=== PATIENT | female | born 1945 | race Caucasian/White ===

== ENCOUNTER 2020-11-19 13:32 | Inpatient (IN) | payer MEDICARE, OTHER ==
[~2020-11-19] VITALS: Ht 167.6 cm; Wt 65.9 kg
[~2020-11-19 13:32] MED LIST: DEC4T PO; LISI10TA27 PO; METF-436 PO; RIVA10TA PO
[2020-11-19 15:06] LABS: ABG BASE EXCESS -17.5 mmol/L (-2.0-2.0); ABG HCO3 11.6 mmol/L (22.0-26.0); ABG PCO2 (T) 39.4 mmHg (32.0-45.0); ABG PO2 (T) 148.6 mmHg (75.0-100.0); ALLEN'S TEST POSITIVE; FCOHb 0.3 % (0.0-3.9); FLOW 15 L/min; FMetHb 0.1 % (0.0-1.5); FO2Hb 97.6 % (94-97); PATIENT TEMPERATURE 36.8; TOTAL HEMOGLOBIN 12.5 G/dl (12.0-16.0)
[2020-11-19] MEDS ORDERED: iohexol 350MG/ML 100ml bottle IV ONE (15:27)
[2020-11-19] MEDS: MESSAGE TO NURSING PO NR (15:32)
[2020-11-19] MEDS ORDERED: normal saline 1000ML IV soln IVB ONE ×2 (15:45→17:30)
[2020-11-19] MEDS ORDERED: alteplase 100MG inj. 100 ML IV ONE (16:10)
[2020-11-19 16:11] LABS: BASOPHILS # (AUTO) 0.1 X10'3 (0-0.2); BASOPHILS % (AUTO) 0.4 % (0-1); EOSINOPHILS # (AUTO) 0.1 X10'3 (0-0.9); EOSINOPHILS % (AUTO) 0.2 % (0-6); HEMATOCRIT 39.9 % (35.0-45.0); HEMOGLOBIN 12.3 g/dl (12.0-16.0); LYMPHOCYTES % (AUTO) 28.9 % (21-51); MEAN CORPUSCULAR HGB CONC 30.9 g/dL (33.0-36.5); MEAN CORPUSCULAR VOLUME 93.7 FL (78-98); MEAN PLATELET VOLUME 7.6 FL (7.4-10.4); MONOCYTES # (AUTO) 2.1 X10'3 (0-0.9); MONOCYTES % (AUTO) 6.8 % (2-12); NEUTROPHILS # (AUTO) 19.9 X10'3 (1.8-7.7); NEUTROPHILS % (AUTO) 63.7 % (42-75); PLATELET COUNT 226 X10'3 (140-440); RED BLOOD COUNT 4.26 X10'6 (4.20-5.60)
[2020-11-19 16:14] LABS: WHITE BLOOD COUNT 31.2 X10'3 (4.5-11.0)
[2020-11-19] MEDS ORDERED: ondansetron/PF 4mg/2ml inj IV PRN (16:30)
[2020-11-19] MEDS ORDERED: potassium Cl 40MEQ/1/2NS 520ml 520 ML IV PRN ×2 (16:30)
[2020-11-19] MEDS ORDERED: acetaminophen 325mg tablet PO PRN (16:30)
[2020-11-19] MEDS ORDERED: morphine 4 MG/ML inj SYRINge IV PRN (16:30)
[2020-11-19] MEDS ORDERED: potassium Cl 20 mEq SR tablet PO PRN (16:30)
[2020-11-19] MEDS ORDERED: LIDOcaine 2% 10ml TOPICAL JELLY (Urojet) TP ONE (16:30)
[2020-11-19 16:34] LABS: TOTAL CELLS COUNTED 200
[2020-11-19 16:35] LABS: HYPOCHROMASIA 1+; PLATELET ESTIMATE NORMAL
[2020-11-19 16:36] LABS: BURR CELLS 1+
[2020-11-19] MEDS ORDERED: cefepime 2g/NS 100ml ADVANTAGE 100 ML IV ONE (16:50)
[2020-11-19 17:04] LABS: ALANINE AMINOTRANSFERASE 73 U/L (12-78); ALBUMIN 2.2 G/DL (3.4-5.0); ALBUMIN/GLOBULIN RATIO 0.7 (1.1-1.5); ALKALINE PHOSPHATASE 93 IU/L (46-116); ANION GAP 17 (8-16); ASPARTATE AMINO TRANSFERASE 89 U/L (10-37); BILIRUBIN,TOTAL 1.1 MG/DL (0.1-1.0); BLOOD UREA NITROGEN 9 MG/DL (7-18); BUN/CREATININE RATIO 7.7 (6.6-38.0); CALCIUM 7.9 MG/DL (8.5-10.1); CHLORIDE 106 MMOL/L (99-107); CREATININE 1.17 MG/DL (0.40-0.90); GLUCOSE 232 MG/DL (70-104); SODIUM 137 MMOL/L (135-145); TOTAL PROTEIN 5.5 G/DL (6.4-8.2); TROPONIN I 0.26 NG/ML (0.0-0.05); eGFR 45 ML/MIN
[2020-11-19] MEDS ORDERED: NORepinephrine inj. 8 MG in dextrose 5%-water 242 ML IV SCH (17:30)
[2020-11-19] MEDS ORDERED: NITR100C11 PO (17:30)
--- NOTE | 2020-11-19 17:36 | NUR ---
lab called C02 is 14, leyda duran, dr. garibay informed
[2020-11-19] MEDS ORDERED: LISI10TA27 PO (17:37)
[2020-11-19] MEDS: NORepinephrine 8mg/ 250ml NS 250 ML IV SCH (18:13)
[2020-11-19] MEDS: normal saline 1000ml 1,000 ML IV SCH (18:56)
[2020-11-19] MEDS: docusate sod 100mg capsule PO SCH (20:00)
[2020-11-19] MEDS ORDERED: VANCOMYCIN 1,500MG inj. 1,500 MG in normal saline 500ml IV soln 500 ML IV SCH (20:00)
[2020-11-19 20:46] LABS: CLARITY,URINE SLIGHTLY CLOUDY (Clear); COLOR,URINE YELLOW (Yellow); UA COLLECTION TYPE FOLEY CATH
[2020-11-19 20:47] LABS: GLUCOSE, URINE NEGATIVE (Neg); KETONES,URINE NEGATIVE (Neg); LEUKOCYTE ESTERASE ,URINE NEGATIVE (Neg); NITRITES, URINE NEGATIVE (Neg); OCCULT BLOOD,URINE NEGATIVE (Neg); PROTEIN,URINE 100 mg/dl (Neg); UROBILINOGEN,URINE 0.2 E.U/dL (0.2-1.0)
[2020-11-19 20:54] LABS: BACTERIA,URINE 2+ /HPF (Neg); RBC,URINE NONE SEEN /HPF (0-2); SQUAMOUS EPITHELIAL CELL,UR MODERATE /LPF (FEW); WBC,URINE 0-4 /HPF (0-4)
[2020-11-19] MEDS: famotidine 20mg tablet PO SCH (21:07)
[2020-11-19] MEDS: HYDROcodone/acetaminophen 5mg/325mg tablet PO PRN (21:07)
[2020-11-19 22:21] LABS: PARTIAL THROMBOPLASTIN TIME 63 SECONDS (22-32)
[2020-11-19] MEDS ORDERED: heparin 25,000 UNIT/250ml bag 250 ML IV SCH (23:00)
[2020-11-19] MEDS ORDERED: heparin 10,000 units/1 ML INJ IV PRN (23:00)
[2020-11-20] VITALS (13 sets, daily range): BP systolic 89–115; BP diastolic 51–72
[2020-11-20] MEDS ORDERED: cefepime 2g/NS 100ml ADVANTAGE 100 ML IV SCH
[2020-11-20] MEDS: normal saline 1000ml 1,000 ML IV SCH ×2 (05:50→19:10)
[2020-11-20] MEDS: HYDROcodone/acetaminophen 5mg/325mg tablet PO PRN ×4 (05:55→18:22)
[2020-11-20 06:08] LABS: BASOPHILS % (AUTO) 0.1 % (0-1); EOSINOPHILS % (AUTO) 0 % (0-6); HEMATOCRIT 36.3 % (35.0-45.0); HEMOGLOBIN 11.8 g/dl (12.0-16.0); LYMPHOCYTES # (AUTO) 3.4 X10'3 (1.1-4.8); LYMPHOCYTES % (AUTO) 12.7 % (21-51); MEAN CORPUSCULAR HEMOGLOBIN 29.1 PG (27.0-31.0); MEAN CORPUSCULAR HGB CONC 32.5 g/dL (33.0-36.5); MEAN CORPUSCULAR VOLUME 89.5 FL (78-98); MEAN PLATELET VOLUME 7.7 FL (7.4-10.4); MONOCYTES # (AUTO) 1.2 X10'3 (0-0.9); MONOCYTES % (AUTO) 4.5 % (2-12); NEUTROPHILS # (AUTO) 22.1 X10'3 (1.8-7.7); NEUTROPHILS % (AUTO) 82.7 % (42-75); PLATELET COUNT 198 X10'3 (140-440); RED BLOOD COUNT 4.06 X10'6 (4.20-5.60); RED CELL DISTRIBUTION WIDTH 14.5 % (11.5-14.5)
[2020-11-20 06:21] LABS: WHITE BLOOD COUNT 26.6 X10'3 (4.5-11.0)
[2020-11-20 06:45] LABS: ALBUMIN 2.2 G/DL (3.4-5.0); ALBUMIN/GLOBULIN RATIO 0.7 (1.1-1.5); ALKALINE PHOSPHATASE 104 IU/L (46-116); ANION GAP 14 (8-16); BILIRUBIN,TOTAL 0.6 MG/DL (0.1-1.0); BLOOD UREA NITROGEN 21 MG/DL (7-18); BUN/CREATININE RATIO 13.9 (6.6-38.0); CALCIUM 7.2 MG/DL (8.5-10.1); CHLORIDE 106 MMOL/L (99-107); CREATININE 1.51 MG/DL (0.40-0.90); GLUCOSE 205 MG/DL (70-104); MAGNESIUM 1.9 MG/DL (1.5-2.4); PHOSPHORUS 3.9 MG/DL (2.3-4.5); POTASSIUM 4.2 MMOL/L (3.5-5.1); SODIUM 137 MMOL/L (135-145); TOTAL CARBON DIOXIDE 17.4 MMOL/L (24-32); TOTAL PROTEIN 5.3 G/DL (6.4-8.2); eGFR 34 ML/MIN
[2020-11-20 06:58] LABS: ALANINE AMINOTRANSFERASE 1532 U/L (12-78)
--- NOTE | 2020-11-20 07:12 | NUR ---
NOTIFIED DR. ARIAS PT WITH PTT 120 AND INFORMED HEPARIN CURRENTLY ON HOLD FOR 2 HOUR PER PROTOCOL. RECEIVED VO TO STOP HEPARIN AND START PT ON LOVENOX 80MG SUBCUT BID.
[2020-11-20 07:16] LABS: ASPARTATE AMINO TRANSFERASE 1883 U/L (10-37)
--- NOTE | 2020-11-20 07:51 | NUR ---
REPORT ATTEMPTED, RN CURRENTLY UNABLE TO RECEIVE REPORT, TO CALL BACK IN 15MIN
[2020-11-20] MEDS: docusate sod 100mg capsule PO SCH ×2 (08:00→19:50)
[2020-11-20] MEDS: famotidine 20mg tablet PO SCH ×2 (08:00→19:50)
[2020-11-20 08:08] LABS: PLATELET ESTIMATE NORMAL; TOTAL CELLS COUNTED 100
--- NOTE | 2020-11-20 08:47 | NUR ---
Patient in room ED 6. I have received report from JASON RN and had the opportunity to ask questions and assume patient care.
[2020-11-20] MEDS: MESSAGE TO NURSING PO NR (10:00)
[2020-11-20] MEDS ORDERED: glucagon, human recombinant 1mg kit SUBCUT PRN (11:10)
[2020-11-20] MEDS ORDERED: insulin Lispro (HumaLOG) vial - multi-dose SQ SCH (11:10)
[2020-11-20] MEDS ORDERED: dextrose 50%-water 50ml dispensing syringe IV PRN ×2 (11:10)
[2020-11-20] MEDS ORDERED: MESSAGE TO PHARMACY PO ONE (11:10)
[2020-11-20] MEDS ORDERED: dextrose ORAL solution 15 GM/59 ML bottle PO PRN ×2 (11:10)
[2020-11-20] MEDS: NORepinephrine 8mg/ 250ml NS 250 ML IV SCH (11:11)
[2020-11-20 12:21] LABS: HEMOGLOBIN A1C 7.7 % (4.5-6.2)
--- NOTE | 2020-11-20 17:31 | NUR ---
New orders from Dr. Yan to DC [facility] and DC [facility], pt to transfer to Telemetry
--- NOTE | 2020-11-20 18:00 | NUR ---
Pt in ICu, recieved report from Ariana Allen RN will assume care when pt arrives to floor.
--- NOTE | 2020-11-20 18:08 | NUR ---
right central line dc'd with tip intact, site clear,cleansed,with 2x2 and tegaderm dressing applied,no further bleeding
--- NOTE | 2020-11-20 18:12 | NUR ---
Problems reprioritized. Patient report given, questions answered & plan of care reviewed with Trace DIAZ.
[2020-11-20] MEDS ORDERED: enoxaparin 80mg/0.8ml syringe SUBCUT SCH (20:00)
--- NOTE | 2020-11-20 20:00 | NUR ---
pt arrived to unit care assumed
[2020-11-20] MEDS: insulin glargine (Lantus) pen - multi-dose SQ SCH (21:00)
[2020-11-20] MEDS: morphine 2 MG/ML inj. syringe IV PRN (21:59)
[2020-11-21 02:00] VITALS: BP 94/51
--- NOTE | 2020-11-21 06:42 | NUR ---
Problems reprioritized. Patient report given, questions answered & plan of care reviewed with Larry RN.
[2020-11-21 06:49] LABS: BASOPHILS % (AUTO) 0.4 % (0-1); EOSINOPHILS % (AUTO) 0.3 % (0-6); HEMATOCRIT 31.5 % (35.0-45.0); HEMOGLOBIN 10.6 g/dl (12.0-16.0); LYMPHOCYTES # (AUTO) 2.2 X10'3 (1.1-4.8); LYMPHOCYTES % (AUTO) 21.1 % (21-51); MEAN CORPUSCULAR HEMOGLOBIN 29.3 PG (27.0-31.0); MEAN CORPUSCULAR HGB CONC 33.6 g/dL (33.0-36.5); MEAN CORPUSCULAR VOLUME 87.3 FL (78-98); MEAN PLATELET VOLUME 8.4 FL (7.4-10.4); MONOCYTES # (AUTO) 0.5 X10'3 (0-0.9); MONOCYTES % (AUTO) 4.4 % (2-12); NEUTROPHILS # (AUTO) 7.9 X10'3 (1.8-7.7); NEUTROPHILS % (AUTO) 73.8 % (42-75); PLATELET COUNT 146 X10'3 (140-440); RED CELL DISTRIBUTION WIDTH 14.4 % (11.5-14.5); WHITE BLOOD COUNT 10.7 X10'3 (4.5-11.0)
[2020-11-21 07:02] VITALS: BP 131/71
[2020-11-21 07:28] LABS: ALBUMIN/GLOBULIN RATIO 0.7 (1.1-1.5); ALKALINE PHOSPHATASE 93 IU/L (46-116); ANION GAP 12 (8-16); ASPARTATE AMINO TRANSFERASE 679 U/L (10-37); BILIRUBIN,TOTAL 0.3 MG/DL (0.1-1.0); BLOOD UREA NITROGEN 16 MG/DL (7-18); BUN/CREATININE RATIO 16.7 (6.6-38.0); CALCIUM 7.3 MG/DL (8.5-10.1); CHLORIDE 111 MMOL/L (99-107); CREATININE 0.96 MG/DL (0.40-0.90); GLUCOSE 99 MG/DL (70-104); PHOSPHORUS 2.6 MG/DL (2.3-4.5); POTASSIUM 3.4 MMOL/L (3.5-5.1); SODIUM 140 MMOL/L (135-145); TOTAL CARBON DIOXIDE 17.1 MMOL/L (24-32); eGFR 57 ML/MIN
[2020-11-21 07:44] LABS: ALANINE AMINOTRANSFERASE 1056 U/L (12-78)
[2020-11-21] MEDS: docusate sod 100mg capsule PO SCH ×2 (08:00→20:00)
[2020-11-21 08:33] LABS: BASOPHILS # (AUTO) 0.1 X10'3 (0-0.2); BASOPHILS % (AUTO) 0.7 % (0-1); EOSINOPHILS % (AUTO) 0.2 % (0-6); HEMOGLOBIN 11.6 g/dl (12.0-16.0); LYMPHOCYTES # (AUTO) 2.8 X10'3 (1.1-4.8); LYMPHOCYTES % (AUTO) 23.4 % (21-51); MEAN CORPUSCULAR HEMOGLOBIN 29.4 PG (27.0-31.0); MEAN PLATELET VOLUME 8.4 FL (7.4-10.4); MONOCYTES # (AUTO) 0.6 X10'3 (0-0.9); MONOCYTES % (AUTO) 4.9 % (2-12); NEUTROPHILS # (AUTO) 8.4 X10'3 (1.8-7.7); NEUTROPHILS % (AUTO) 70.8 % (42-75); PLATELET COUNT 158 X10'3 (140-440); RED BLOOD COUNT 3.93 X10'6 (4.20-5.60); RED CELL DISTRIBUTION WIDTH 14.7 % (11.5-14.5); WHITE BLOOD COUNT 11.8 X10'3 (4.5-11.0)
--- NOTE | 2020-11-21 09:18 | NUR ---
Noted pt with T2DM, well controlled for age with A1c 7.7%. DM education not warranted at this time. Will continue to follow. Addendum: 11/21/20 at [address] Amended: Links added.
[2020-11-21] MEDS: MESSAGE TO NURSING PO NR (10:00)
[2020-11-21 11:00] VITALS: BP 131/71
[2020-11-21] MEDS: K and/or MAG REPLACEMENT MC SCH ×2 (15:58→20:00)
[2020-11-21 18:00] VITALS: BP 164/80
--- NOTE | 2020-11-21 18:30 | NUR ---
Patient in room PCU 3024. I have received report from Kari RN and had the opportunity to ask questions and assume patient care.
[2020-11-21] MEDS: famotidine 20mg tablet PO SCH ×2 (20:00→20:54)
[2020-11-21] MEDS: morphine 2 MG/ML inj. syringe IV PRN (20:50)
[2020-11-21] MEDS: metFORMIN 500mg tablet PO SCH (20:53)
[2020-11-21] MEDS: apixaban 5mg tablet PO SCH (20:54)
[2020-11-21] MEDS: insulin glargine (Lantus) pen - multi-dose SQ SCH (21:00)
[2020-11-21 22:00] VITALS: BP 158/66
[2020-11-21] MEDS: nitrofuran/nitrofuran macrocrysal 100 MG capsule PO SCH (23:02)
[2020-11-22 02:00] VITALS: BP 137/88
[2020-11-22 06:00] VITALS: BP 160/85
[2020-11-22 06:39] LABS: BASOPHILS % (AUTO) 0.7 % (0-1); EOSINOPHILS % (AUTO) 0.3 % (0-6); HEMATOCRIT 31.5 % (35.0-45.0); HEMOGLOBIN 10.5 g/dl (12.0-16.0); LYMPHOCYTES % (AUTO) 26.4 % (21-51); MEAN CORPUSCULAR HEMOGLOBIN 29.4 PG (27.0-31.0); MEAN CORPUSCULAR HGB CONC 33.4 g/dL (33.0-36.5); MEAN PLATELET VOLUME 8.2 FL (7.4-10.4); MONOCYTES # (AUTO) 0.5 X10'3 (0-0.9); MONOCYTES % (AUTO) 6.1 % (2-12); NEUTROPHILS % (AUTO) 66.5 % (42-75); PLATELET COUNT 165 X10'3 (140-440); RED BLOOD COUNT 3.58 X10'6 (4.20-5.60); RED CELL DISTRIBUTION WIDTH 14.3 % (11.5-14.5); WHITE BLOOD COUNT 7.5 X10'3 (4.5-11.0)
--- NOTE | 2020-11-22 06:58 | NUR ---
Problems reprioritized. Patient report given, questions answered & plan of care reviewed with Willy DIAZ.
[2020-11-22 07:05] LABS: ALANINE AMINOTRANSFERASE 704 U/L (12-78); ALBUMIN/GLOBULIN RATIO 0.7 (1.1-1.5); ALKALINE PHOSPHATASE 95 IU/L (46-116); ANION GAP 10 (8-16); ASPARTATE AMINO TRANSFERASE 274 U/L (10-37); BILIRUBIN,TOTAL 0.5 MG/DL (0.1-1.0); BLOOD UREA NITROGEN 8 MG/DL (7-18); BUN/CREATININE RATIO 12.7 (6.6-38.0); CALCIUM 7.4 MG/DL (8.5-10.1); CHLORIDE 112 MMOL/L (99-107); CREATININE 0.63 MG/DL (0.40-0.90); GLUCOSE 92 MG/DL (70-104); POTASSIUM 3.3 MMOL/L (3.5-5.1); SODIUM 142 MMOL/L (135-145); TOTAL CARBON DIOXIDE 20.5 MMOL/L (24-32); eGFR > 90 ML/MIN
[2020-11-22] MEDS: nitrofuran/nitrofuran macrocrysal 100 MG capsule PO SCH ×2 (08:11→19:35)
[2020-11-22] MEDS: metFORMIN 500mg tablet PO SCH ×2 (08:11→16:59)
[2020-11-22] MEDS: apixaban 5mg tablet PO SCH ×2 (08:11→19:35)
[2020-11-22] MEDS: famotidine 20mg tablet PO SCH ×2 (08:11→19:35)
[2020-11-22] MEDS: docusate sod 100mg capsule PO SCH ×2 (08:11→19:35)
[2020-11-22] MEDS: potassium Cl 20 mEq SR tablet PO PRN ×3 (08:13→17:00)
[2020-11-22] MEDS: K and/or MAG REPLACEMENT MC SCH ×2 (08:14→19:36)
[2020-11-22 11:00] VITALS: BP 152/81
[2020-11-22 15:00] VITALS: BP 143/83
[2020-11-22 18:00] VITALS: BP 175/86
[2020-11-22] MEDS: insulin glargine (Lantus) pen - multi-dose SQ SCH (21:00)
[2020-11-22 22:00] VITALS: BP 159/83
[2020-11-23 02:00] VITALS: BP 152/91
--- NOTE | 2020-11-23 06:41 | NUR ---
Problems reprioritized. Patient report given, questions answered & plan of care reviewed with Caron DIAZ. Addendum: 11/23/20 at 0641 by Dori Poon RN Amended: Links added.
[2020-11-23 06:49] LABS: BASOPHILS % (AUTO) 0.5 % (0-1); EOSINOPHILS % (AUTO) 0.5 % (0-6); HEMATOCRIT 32.8 % (35.0-45.0); LYMPHOCYTES % (AUTO) 29.7 % (21-51); MEAN CORPUSCULAR HEMOGLOBIN 29.7 PG (27.0-31.0); MEAN CORPUSCULAR HGB CONC 33.4 g/dL (33.0-36.5); MEAN CORPUSCULAR VOLUME 88.8 FL (78-98); MEAN PLATELET VOLUME 7.8 FL (7.4-10.4); MONOCYTES # (AUTO) 0.5 X10'3 (0-0.9); MONOCYTES % (AUTO) 6.9 % (2-12); NEUTROPHILS # (AUTO) 4.2 X10'3 (1.8-7.7); NEUTROPHILS % (AUTO) 62.4 % (42-75); PLATELET COUNT 179 X10'3 (140-440); RED CELL DISTRIBUTION WIDTH 14.5 % (11.5-14.5); WHITE BLOOD COUNT 6.8 X10'3 (4.5-11.0)
--- NOTE | 2020-11-23 06:57 | NUR ---
Patient in room PCU 3024. I have received report from Dori DIAZ and had the opportunity to ask questions and assume patient care.
[2020-11-23 07:00] VITALS: BP 147/80
[2020-11-23 07:34] LABS: ALANINE AMINOTRANSFERASE 467 U/L (12-78); ALBUMIN/GLOBULIN RATIO 0.6 (1.1-1.5); ALKALINE PHOSPHATASE 91 IU/L (46-116); ANION GAP 7 (8-16); ASPARTATE AMINO TRANSFERASE 121 U/L (10-37); BILIRUBIN,TOTAL 0.5 MG/DL (0.1-1.0); BLOOD UREA NITROGEN 7 MG/DL (7-18); BUN/CREATININE RATIO 11.3 (6.6-38.0); CALCIUM 7.7 MG/DL (8.5-10.1); CHLORIDE 110 MMOL/L (99-107); CREATININE 0.62 MG/DL (0.40-0.90); GLUCOSE 87 MG/DL (70-104); PHOSPHORUS 2.2 MG/DL (2.3-4.5); POTASSIUM 3.8 MMOL/L (3.5-5.1); SODIUM 138 MMOL/L (135-145); TOTAL CARBON DIOXIDE 21.1 MMOL/L (24-32); TOTAL PROTEIN 5.1 G/DL (6.4-8.2); eGFR > 90 ML/MIN
[2020-11-23] MEDS: docusate sod 100mg capsule PO SCH ×2 (07:41→21:56)
[2020-11-23] MEDS: metFORMIN 500mg tablet PO SCH ×2 (07:41→17:19)
[2020-11-23] MEDS: HYDROcodone/acetaminophen 5mg/325mg tablet PO PRN ×4 (07:41→21:57)
[2020-11-23] MEDS: apixaban 5mg tablet PO SCH ×2 (07:41→21:56)
[2020-11-23] MEDS: famotidine 20mg tablet PO SCH ×2 (07:41→22:40)
[2020-11-23] MEDS: nitrofuran/nitrofuran macrocrysal 100 MG capsule PO SCH ×2 (07:42→22:40)
[2020-11-23] MEDS: K and/or MAG REPLACEMENT MC SCH ×2 (08:00→20:00)
[2020-11-23 11:00] VITALS: BP 138/76
--- NOTE | 2020-11-23 11:00 | NUR ---
Patient is refusing to intake MOM to help promote Bowel care. Pt has not had a BM since 11-20 and receiving [place] 5 Q4 for pain that patient is c/o in back and arms. A/O X3 with remote episodes of confusion. MD aware. A CXR was ordered.
[2020-11-23] MEDS: magnesium hydroxide 30ml (MOM) UD suspension PO PRN (12:13)
--- NOTE | 2020-11-23 12:34 | NUR ---
Paged Dr. Tomlin PAGER ID: [phone] MESSAGE: Re: Yumiko Haddad [id number]. Pts CXR results are back, pt still confused. Please Advise, Caron Marley RN [phone]
--- NOTE | 2020-11-23 14:31 | NUR ---
Nutrition consult re: "needs chopped meat, bad teeth". Pt on a CHO controlled diet documented with average 25% PO intake not meeting estimated nutrient needs. Diet order has just been changed to mechanical soft chop all, pending first meal since texture modification. Pt admit for pulmonary embolus and hypotension with elevated lactic acid and metabolic acidosis. LBM 11/20, receiving routine bowel care and received first dose of PRN MoM today. Will continue to follow closely and make recommendations as appropriate pending trends in PO intake since texture modification. Recommendations: 1) Continue SB6 diet; consider discontinuing CHO controlled diet given BG levels well controlled throughout LOS 2) Monitor need for ONS 3) Routine bowel care 4) Scaled weight this admit; weekly scaled weights thereafter Addendum: 11/23/20 at [address] Amended: Links added.
--- NOTE | 2020-11-23 14:32 | NUR ---
Ana Laurad Dr. Tomlin PAGER ID: [phone] MESSAGE: Re: Yumiko Haddad [id number]. Pt c/o SOB, May we have order for RT eval/Treat? Thank you Caron DIAZ [phone] Addendum: 11/23/20 at 1433 by Car[address] Johns RN Dr. Tomlin called via phone. MD rodriguez to RT eval and treat
[2020-11-23 15:00] VITALS: BP 148/85
--- NOTE | 2020-11-23 18:15 | NUR ---
Problems reprioritized. Patient report given, questions answered & plan of care reviewed with Ginger DIAZ.
[2020-11-23 19:00] VITALS: BP 164/93
[2020-11-23] MEDS: insulin glargine (Lantus) pen - multi-dose SQ SCH (21:00)
[2020-11-23 23:00] VITALS: BP 168/71
[2020-11-24 02:46] VITALS: BP 170/89
[2020-11-24 06:26] LABS: BASOPHILS % (AUTO) 0.4 % (0-1); EOSINOPHILS % (AUTO) 0.5 % (0-6); HEMATOCRIT 36.4 % (35.0-45.0); HEMOGLOBIN 12.1 g/dl (12.0-16.0); LYMPHOCYTES # (AUTO) 2.4 X10'3 (1.1-4.8); MEAN CORPUSCULAR HEMOGLOBIN 29.5 PG (27.0-31.0); MEAN CORPUSCULAR HGB CONC 33.3 g/dL (33.0-36.5); MEAN CORPUSCULAR VOLUME 88.5 FL (78-98); MONOCYTES # (AUTO) 0.7 X10'3 (0-0.9); MONOCYTES % (AUTO) 8.4 % (2-12); NEUTROPHILS # (AUTO) 4.6 X10'3 (1.8-7.7); NEUTROPHILS % (AUTO) 59.7 % (42-75); PLATELET COUNT 210 X10'3 (140-440); RED BLOOD COUNT 4.12 X10'6 (4.20-5.60); RED CELL DISTRIBUTION WIDTH 14.5 % (11.5-14.5); WHITE BLOOD COUNT 7.7 X10'3 (4.5-11.0)
--- NOTE | 2020-11-24 06:44 | NUR ---
Patient in room PCU 3024. I have received report from Ginger DIAZ and had the opportunity to ask questions and assume patient care.
[2020-11-24 06:52] LABS: ALANINE AMINOTRANSFERASE 352 U/L (12-78); ALBUMIN 2.4 G/DL (3.4-5.0); ALBUMIN/GLOBULIN RATIO 0.7 (1.1-1.5); ALKALINE PHOSPHATASE 101 IU/L (46-116); ANION GAP 8 (8-16); ASPARTATE AMINO TRANSFERASE 64 U/L (10-37); BILIRUBIN,TOTAL 0.5 MG/DL (0.1-1.0); BLOOD UREA NITROGEN 10 MG/DL (7-18); BUN/CREATININE RATIO 15.2 (6.6-38.0); CALCIUM 8.4 MG/DL (8.5-10.1); CHLORIDE 108 MMOL/L (99-107); CREATININE 0.66 MG/DL (0.40-0.90); GLUCOSE 109 MG/DL (70-104); PHOSPHORUS 2.8 MG/DL (2.3-4.5); POTASSIUM 3.9 MMOL/L (3.5-5.1); SODIUM 138 MMOL/L (135-145); TOTAL PROTEIN 5.8 G/DL (6.4-8.2); eGFR 87 ML/MIN
[2020-11-24 07:00] VITALS: BP 170/91
[2020-11-24] MEDS: K and/or MAG REPLACEMENT MC SCH ×2 (08:00→20:00)
[2020-11-24] MEDS: HYDROcodone/acetaminophen 5mg/325mg tablet PO PRN ×3 (08:12→17:22)
[2020-11-24] MEDS: docusate sod 100mg capsule PO SCH (08:12)
[2020-11-24] MEDS: famotidine 20mg tablet PO SCH ×2 (08:13→20:54)
[2020-11-24] MEDS: nitrofuran/nitrofuran macrocrysal 100 MG capsule PO SCH ×2 (08:13→20:54)
[2020-11-24] MEDS: metFORMIN 500mg tablet PO SCH (08:14)
[2020-11-24] MEDS: apixaban 5mg tablet PO SCH ×2 (08:14→20:55)
[2020-11-24] MEDS: acetaminophen 325mg tablet PO PRN ×2 (08:17→17:22)
[2020-11-24] MEDS: magnesium hydroxide 30ml (MOM) UD suspension PO PRN (08:17)
--- NOTE | 2020-11-24 10:09 | NUR ---
MD at bedside with nurse. aware of no BM since 11/20. oksantosh order for miralax once a day. Continue to monitor.
[2020-11-24] MEDS ORDERED: polyethylene glycol 3350 17gm powd pack PO PRN (10:15)
--- NOTE | 2020-11-24 17:59 | NUR ---
Problems reprioritized. Patient report given, questions answered & plan of care reviewed with Ginger DIAZ.
[2020-11-24 19:00] VITALS: BP 148/74
[2020-11-24] MEDS: insulin glargine (Lantus) pen - multi-dose SQ SCH (21:00)
[2020-11-24 23:00] VITALS: BP 186/87
[2020-11-25 03:00] VITALS: BP 163/87
[2020-11-25 03:27] VITALS: BP 186/87
[2020-11-25 06:00] VITALS: BP 143/81
--- NOTE | 2020-11-25 06:30 | NUR ---
Patient in room PCU 3024. I have received report from Ginger DIAZ and had the opportunity to ask questions and assume patient care.
[2020-11-25 06:53] LABS: BASOPHILS % (AUTO) 0.5 % (0-1); EOSINOPHILS % (AUTO) 0.4 % (0-6); HEMATOCRIT 35.1 % (35.0-45.0); HEMOGLOBIN 11.9 g/dl (12.0-16.0); LYMPHOCYTES # (AUTO) 1.9 X10'3 (1.1-4.8); LYMPHOCYTES % (AUTO) 25.4 % (21-51); MEAN CORPUSCULAR HEMOGLOBIN 29.6 PG (27.0-31.0); MEAN CORPUSCULAR HGB CONC 33.8 g/dL (33.0-36.5); MEAN CORPUSCULAR VOLUME 87.6 FL (78-98); MONOCYTES # (AUTO) 0.5 X10'3 (0-0.9); MONOCYTES % (AUTO) 7.3 % (2-12); NEUTROPHILS % (AUTO) 66.4 % (42-75); PLATELET COUNT 224 X10'3 (140-440); RED BLOOD COUNT 4.01 X10'6 (4.20-5.60); RED CELL DISTRIBUTION WIDTH 14.4 % (11.5-14.5); WHITE BLOOD COUNT 7.5 X10'3 (4.5-11.0)
[2020-11-25 06:58] LABS: ALANINE AMINOTRANSFERASE 228 U/L (12-78); ALBUMIN 2.2 G/DL (3.4-5.0); ALBUMIN/GLOBULIN RATIO 0.7 (1.1-1.5); ALKALINE PHOSPHATASE 90 IU/L (46-116); ANION GAP 10 (8-16); ASPARTATE AMINO TRANSFERASE 40 U/L (10-37); BILIRUBIN,TOTAL 0.5 MG/DL (0.1-1.0); BLOOD UREA NITROGEN 6 MG/DL (7-18); BUN/CREATININE RATIO 10.7 (6.6-38.0); CALCIUM 8.2 MG/DL (8.5-10.1); CHLORIDE 108 MMOL/L (99-107); CREATININE 0.56 MG/DL (0.40-0.90); GLUCOSE 104 MG/DL (70-104); MAGNESIUM 2.2 MG/DL (1.5-2.4); PHOSPHORUS 3.2 MG/DL (2.3-4.5); POTASSIUM 3.7 MMOL/L (3.5-5.1); SODIUM 143 MMOL/L (135-145); TOTAL PROTEIN 5.5 G/DL (6.4-8.2); eGFR > 90 ML/MIN
[2020-11-25] MEDS: K and/or MAG REPLACEMENT MC SCH ×2 (08:00→20:00)
[2020-11-25] MEDS: nitrofuran/nitrofuran macrocrysal 100 MG capsule PO SCH ×2 (08:50→22:21)
[2020-11-25] MEDS: famotidine 20mg tablet PO SCH ×2 (08:50→20:00)
[2020-11-25] MEDS: furosemide 40mg/4ml inj IV SCH (08:51)
[2020-11-25] MEDS: apixaban 5mg tablet PO SCH ×2 (08:51→22:20)
[2020-11-25 11:00] VITALS: BP 147/83
[2020-11-25 15:00] VITALS: BP 141/90
--- NOTE | 2020-11-25 19:04 | NUR ---
Problems reprioritized. Patient report given, questions answered & plan of care reviewed with Lobo DIAZ. Patient stable at transfer of care.
[2020-11-25] MEDS: insulin glargine (Lantus) pen - multi-dose SQ SCH (21:00)
[2020-11-26 06:00] VITALS: BP 154/82
--- NOTE | 2020-11-26 06:15 | NUR ---
Patient in room PCU 3024. I have received report from renee chappell and had the opportunity to ask questions and assume patient care.
--- NOTE | 2020-11-26 06:18 | NUR ---
Problems reprioritized. Patient report given, questions answered & plan of care reviewed with EMILY Lim.
[2020-11-26 06:52] LABS: BASOPHILS # (AUTO) 0.1 X10'3 (0-0.2); BASOPHILS % (AUTO) 1.3 % (0-1); EOSINOPHILS % (AUTO) 0.5 % (0-6); HEMATOCRIT 36.6 % (35.0-45.0); HEMOGLOBIN 12.1 g/dl (12.0-16.0); LYMPHOCYTES # (AUTO) 1.9 X10'3 (1.1-4.8); LYMPHOCYTES % (AUTO) 27.8 % (21-51); MEAN CORPUSCULAR HEMOGLOBIN 29.4 PG (27.0-31.0); MEAN CORPUSCULAR HGB CONC 33.1 g/dL (33.0-36.5); MEAN CORPUSCULAR VOLUME 88.8 FL (78-98); MEAN PLATELET VOLUME 8.3 FL (7.4-10.4); MONOCYTES # (AUTO) 0.5 X10'3 (0-0.9); MONOCYTES % (AUTO) 7.6 % (2-12); NEUTROPHILS # (AUTO) 4.2 X10'3 (1.8-7.7); NEUTROPHILS % (AUTO) 62.8 % (42-75); PLATELET COUNT 233 X10'3 (140-440); RED BLOOD COUNT 4.12 X10'6 (4.20-5.60); RED CELL DISTRIBUTION WIDTH 14.6 % (11.5-14.5); WHITE BLOOD COUNT 6.8 X10'3 (4.5-11.0)
[2020-11-26 07:22] LABS: ALANINE AMINOTRANSFERASE 157 U/L (12-78); ALBUMIN 2.2 G/DL (3.4-5.0); ALBUMIN/GLOBULIN RATIO 0.6 (1.1-1.5); ALKALINE PHOSPHATASE 112 IU/L (46-116); ANION GAP 9 (8-16); ASPARTATE AMINO TRANSFERASE 33 U/L (10-37); BILIRUBIN,TOTAL 0.6 MG/DL (0.1-1.0); BLOOD UREA NITROGEN 8 MG/DL (7-18); BUN/CREATININE RATIO 13.3 (6.6-38.0); CALCIUM 8.1 MG/DL (8.5-10.1); CHLORIDE 105 MMOL/L (99-107); GLUCOSE 92 MG/DL (70-104); MAGNESIUM 2.3 MG/DL (1.5-2.4); PHOSPHORUS 3.3 MG/DL (2.3-4.5); POTASSIUM 3.5 MMOL/L (3.5-5.1); SODIUM 141 MMOL/L (135-145); TOTAL CARBON DIOXIDE 27.4 MMOL/L (24-32); TOTAL PROTEIN 5.6 G/DL (6.4-8.2); eGFR > 90 ML/MIN
[2020-11-26] MEDS: K and/or MAG REPLACEMENT MC SCH (08:00)
[2020-11-26] MEDS: furosemide 40mg/4ml inj IV SCH (09:39)
[2020-11-26] MEDS: apixaban 5mg tablet PO SCH (09:40)
[2020-11-26] MEDS: nitrofuran/nitrofuran macrocrysal 100 MG capsule PO SCH (09:40)
[2020-11-26] MEDS: famotidine 20mg tablet PO SCH (09:40)
[2020-11-26 11:00] VITALS: BP 138/81
--- NOTE | 2020-11-26 14:26 | NUR ---
Reassessment: Pt continues w/ poor intake, mostly 25% of meals on CCHO diet not meeting needs. Pt noted to be weak and needs some assistance w/ meals. Communicated w/ RN recommendation to liberalize to regular diet in view of poor PO intake and Pt's BG has been well managed. Pt may also benefit from ONS at this time given general weakness. LBM 11/24. Will continue to monitor. Recommendations: 1) Continue SB6 diet; d/c CHO controlled diet given BG levels well controlled throughout LOS 2) Ensure Enlive BID BD to provide 700kcals and 40g protein if consumed 100% 3) Routine bowel care 4) Scaled weight this admit; weekly scaled weights thereafter Addendum: 11/26/20 at [address] Amended: Links added.
--- NOTE | 2020-11-26 16:59 | NUR ---
Wound care was asked to see patient for some left groin redness and open area, no pictures in the chart. Upon assessment, no real wounds to see, Patient is incontinent of urine and has a wick, she was wet with urine on the chux, and wick was in place. Grace care given, linens and chux and wick all changed. No open areas noted, Barrier spray and calazime applied, patient turned to her right side with pillows supporting her back. Recommend frequent turning, and repositioning as well grace care.
[2020-11-26] MEDS ORDERED: lactose-reduced food (Ensure Enlive) - 237ml bottle PO SCH (17:30)
--- NOTE | 2020-11-26 17:30 | NUR ---
pt transferred via [facility] to [facility], report given to erniern,sl dc'd from left , site clear, thorough grace care given prior to transfer, wick removed, brief in place
[2020-11-28] MEDS ORDERED: apixaban 5mg tablet PO SCH (20:00)
== END 2020-11-26 17:38 | DRG 175 ==
LOC: ER 13:32 → ED HOLD 16:26 → UNDOADMIN 16:26 → ED HOLD 16:35 → ICU 2S 11-20 09:05 → PCU 3S 11-20 18:42
PROVIDERS: ADMIT Internal Medicine Critical Care Medicine; ATTEND Internal Medicine Critical Care Medicine
PROC: 3E03317 Introduction of Other Thrombolytic into Peripheral Vein, Percutaneous Approach (ICD-10-PCS; principal; 2020-11-19)
PROC: B32T1ZZ Computerized Tomography (CT Scan) of Left Pulmonary Artery using Low Osmolar Contrast (ICD-10-PCS; 2020-11-19)
PROC: B3201ZZ Computerized Tomography (CT Scan) of Thoracic Aorta using Low Osmolar Contrast (ICD-10-PCS; 2020-11-19)
PROC: B32S1ZZ Computerized Tomography (CT Scan) of Right Pulmonary Artery using Low Osmolar Contrast (ICD-10-PCS; 2020-11-19)
PROC: BW211ZZ Computerized Tomography (CT Scan) of Abdomen and Pelvis using Low Osmolar Contrast (ICD-10-PCS; 2020-11-19)
PROC: 02H633Z Insertion of Infusion Device into Right Atrium, Percutaneous Approach (ICD-10-PCS; 2020-11-19)
PROC: B548ZZA Ultrasonography of Superior Vena Cava, Guidance (ICD-10-PCS; 2020-11-19)
DX: I26.02 Saddle embolus of pulmonary artery with acute cor pulmonale (principal); N17.0 Acute kidney failure with tubular necrosis; E43 Unspecified severe protein-calorie malnutrition; R57.0 Cardiogenic shock; G93.40 Encephalopathy, unspecified; E87.2 Acidosis; I82.411 Acute embolism and thrombosis of right femoral vein; K57.30 Diverticulosis of large intestine without perforation or abscess without bleeding; E11.9 Type 2 diabetes mellitus without complications; I11.0 Hypertensive heart disease with heart failure; I95.9 Hypotension, unspecified; M54.2 Cervicalgia; Z66 Do not resuscitate; I50.9 Heart failure, unspecified; Z79.01 Long term (current) use of anticoagulants; Z79.899 Other long term (current) drug therapy; Z86.16 Personal history of COVID-19; Z90.710 Acquired absence of both cervix and uterus; Z99.81 Dependence on supplemental oxygen; Z68.23 Body mass index [BMI] 23.0-23.9, adult
CPT/HCPCS: 36415; 36600; 70450; 71045; 71275; 74177; 80053; 80329; 81001; 82803; 82948; 83036; 83605; 83735; 83880; 84100; 84145; 84484; 85007; 85018; 85025; 85730; 87040; 87081; 87088; 93005; 93306; 93308; 93970; 94760; 97110; 97116; 97161; 97530; 97535; 99285; G0378; J0692; J1644; J1650; J1815; J1940; J2270; J2997; J3370; J7030; Q9967

== ENCOUNTER 2021-02-11 13:38 | Inpatient (IN) | payer MEDICARE ==
[~2021-02-11] VITALS: Ht 167.6 cm; Wt 63.6 kg
[~2021-02-11 13:38] MED LIST changes: -DEC4T PO; +NITR100C11 PO; -RIVA10TA PO
[2021-02-11] MEDS ORDERED: ondansetron/PF 4mg/2ml inj IV ONE (14:45)
[2021-02-11] MEDS ORDERED: morphine 4 MG/ML inj SYRINge IV ONE ×2 (14:45→18:15)
[2021-02-11 14:54] LABS: CLARITY,URINE CLOUDY (Clear); COLOR,URINE YELLOW (Yellow); GLUCOSE, URINE NEGATIVE (Neg); KETONES,URINE NEGATIVE (Neg); LEUKOCYTE ESTERASE ,URINE MODERATE (Neg); NITRITES, URINE NEGATIVE (Neg); OCCULT BLOOD,URINE LARGE (Neg); PROTEIN,URINE TRACE mg/dl (Neg); UROBILINOGEN,URINE 0.2 E.U/dL (0.2-1.0)
[2021-02-11 14:56] LABS: UA COLLECTION TYPE OTHER
[2021-02-11 15:00] LABS: SQUAMOUS EPITHELIAL CELL,UR FEW /LPF (FEW); TRANSITIONAL EPI CELLS,URINE MODERATE /HPF
[2021-02-11 15:01] LABS: COARSE GRANULAR CAST 0-3 /LPF (NEGATIVE); HYALINE CASTS 0-3 /LPF (NEGATIVE); MUCUS STRANDS FEW /LPF (Neg)
[2021-02-11 15:02] LABS: BASOPHILS # (AUTO) 0.1 X10'3 (0-0.2); BASOPHILS % (AUTO) 0.3 % (0-1); EOSINOPHILS # (AUTO) 0.1 X10'3 (0-0.9); EOSINOPHILS % (AUTO) 0.7 % (0-6); HEMATOCRIT 40.6 % (35.0-45.0); HEMOGLOBIN 13.3 g/dl (12.0-16.0); LYMPHOCYTES # (AUTO) 2.5 X10'3 (1.1-4.8); LYMPHOCYTES % (AUTO) 14.2 % (21-51); MEAN CORPUSCULAR HEMOGLOBIN 29.7 PG (27.0-31.0); MEAN CORPUSCULAR HGB CONC 32.9 g/dL (33.0-36.5); MEAN CORPUSCULAR VOLUME 90.3 FL (78-98); MEAN PLATELET VOLUME 8.2 FL (7.4-10.4); MONOCYTES # (AUTO) 1.3 X10'3 (0-0.9); MONOCYTES % (AUTO) 7.1 % (2-12); NEUTROPHILS # (AUTO) 13.7 X10'3 (1.8-7.7); NEUTROPHILS % (AUTO) 77.7 % (42-75); PLATELET COUNT 304 X10'3 (140-440); RED BLOOD COUNT 4.49 X10'6 (4.20-5.60); RED CELL DISTRIBUTION WIDTH 15.2 % (11.5-14.5); WHITE BLOOD COUNT 17.6 X10'3 (4.5-11.0)
[2021-02-11 15:03] LABS: BACTERIA,URINE FEW /HPF (Neg); RBC,URINE 0-2 /HPF (0-2); WBC,URINE 30-50 /HPF (0-4)
[2021-02-11 15:13] LABS: ALANINE AMINOTRANSFERASE 35 U/L (12-78); ALBUMIN 3.2 G/DL (3.4-5.0); ALBUMIN/GLOBULIN RATIO 0.8 (1.1-1.5); ALKALINE PHOSPHATASE 57 IU/L (46-116); ANION GAP 11 (8-16); ASPARTATE AMINO TRANSFERASE 25 U/L (10-37); BILIRUBIN,TOTAL 0.3 MG/DL (0.1-1.0); BLOOD UREA NITROGEN 14 MG/DL (7-18); BUN/CREATININE RATIO 12.2 (6.6-38.0); CALCIUM 9.3 MG/DL (8.5-10.1); CHLORIDE 104 MMOL/L (99-107); CREATININE 1.15 MG/DL (0.40-0.90); GLUCOSE 156 MG/DL (70-104); LIPASE 127 U/L (73-393); MAGNESIUM 2.4 MG/DL (1.5-2.4); POTASSIUM 3.7 MMOL/L (3.5-5.1); SODIUM 141 MMOL/L (135-145); TOTAL CARBON DIOXIDE 25.8 MMOL/L (24-32); eGFR 46 ML/MIN
[2021-02-11] MEDS ORDERED: iohexol 300mg/ml 100ml inj. ONE (15:27)
[2021-02-11] MEDS ORDERED: CefTRIAXone 2gm/D5W 50ml BAG 50 ML IV ONE (16:00)
[2021-02-11 16:03] LABS: PARTIAL THROMBOPLASTIN TIME 26 SECONDS (22-32)
--- NOTE | 2021-02-11 16:12 | NUR ---
PTS FAMILY CALLED AND LEFT CONTACT INFO KODY SANZ:
[2021-02-11] MEDS: MESSAGE TO NURSING PO SCH (16:26)
[2021-02-11] MEDS ORDERED: VANC125C5 PO (17:42)
[2021-02-11] MEDS ORDERED: ONDA4TAB6 PO (17:43)
[2021-02-11] MEDS ORDERED: vancomycin 125mg/5ml ORAL solution 5ml UD oral syringe PO ONE (17:45)
--- NOTE | 2021-02-11 18:30 | NUR ---
family at bedside. PT REQUESTED FOR SIP OF WATER. PT HAS BEEN ABLE TO TAKE A FEW SIPS OF WATER. BEDPAN WAS REMOVED FROM UNDER PT, AT PT'S REQUEST. PT MEDICATED. PA AT BEDSIDE UPDATING FAMILY ON PT'S STATUS.
[2021-02-11] MEDS ORDERED: morphine 2 MG/ML inj. syringe IV PRN (20:05)
[2021-02-11] MEDS ORDERED: ondansetron/PF 4mg/2ml inj IV PRN (20:05)
[2021-02-11] MEDS ORDERED: acetaminophen 325mg tablet PO PRN (20:05)
[2021-02-11] MEDS ORDERED: dextrose 50%-water 50ml dispensing syringe IV PRN ×2 (20:10)
[2021-02-11] MEDS ORDERED: glucagon, human recombinant 1mg kit SUBCUT PRN (20:10)
[2021-02-11] MEDS ORDERED: MESSAGE TO PHARMACY PO ONE (20:10)
[2021-02-11] MEDS ORDERED: insulin Lispro (HumaLOG) vial - multi-dose SQ SCH (20:10)
[2021-02-11] MEDS ORDERED: dextrose ORAL solution 15 GM/59 ML bottle PO PRN ×2 (20:10)
[2021-02-11 20:21] LABS: HEMOGLOBIN A1C 6.1 % (4.5-6.2)
--- NOTE | 2021-02-11 20:42 | NUR ---
rounded on patient, pt has no complaints at present. chemistry lab instructor at present.
[2021-02-11] MEDS ORDERED: insulin glargine (Lantus) pen - multi-dose SQ SCH (21:00)
[2021-02-11] MEDS ORDERED: temazepam 15mg capsule PO PRN (21:00)
--- NOTE | 2021-02-11 21:45 | NUR ---
Received report from Allison DIAZ in the ER. Pt arrived on the unit via gurney and was able to ambulate with assistance to her bed. Pt was on room air and saline locked. Pt belongings were placed on the bedside table. Pt had no signs of distress, will continue to monitor.
[2021-02-11] MEDS: dextrose 5%-1/2 normal saline 1,000 ML IV SCH (22:55)
[2021-02-11] MEDS: morphine 2 MG/ML inj. syringe IV PRN (22:57)
[2021-02-12] VITALS: BP 129/76
[2021-02-12] MEDS: vancomycin 125mg/5ml ORAL solution 5ml UD oral syringe PO SCH ×2 (01:41→07:29)
[2021-02-12] MEDS ORDERED: FAMO20TA8 PO (04:16)
[2021-02-12] MEDS ORDERED: APIX5TAB3 PO (04:16)
[2021-02-12] MEDS ORDERED: FURO40TA4 PO (04:16)
--- NOTE | 2021-02-12 06:09 | NUR ---
Problems reprioritized. Patient report given, questions answered & plan of care reviewed with Philip DIAZ.
[2021-02-12 06:24] LABS: BASOPHILS # (AUTO) 0.1 X10'3 (0-0.2); BASOPHILS % (AUTO) 0.4 % (0-1); EOSINOPHILS % (AUTO) 0.3 % (0-6); HEMATOCRIT 37.6 % (35.0-45.0); HEMOGLOBIN 12.3 g/dl (12.0-16.0); LYMPHOCYTES # (AUTO) 2.9 X10'3 (1.1-4.8); LYMPHOCYTES % (AUTO) 22.6 % (21-51); MEAN CORPUSCULAR HEMOGLOBIN 29.9 PG (27.0-31.0); MEAN CORPUSCULAR HGB CONC 32.8 g/dL (33.0-36.5); MEAN CORPUSCULAR VOLUME 91.2 FL (78-98); MEAN PLATELET VOLUME 8.4 FL (7.4-10.4); MONOCYTES # (AUTO) 0.9 X10'3 (0-0.9); MONOCYTES % (AUTO) 6.7 % (2-12); PLATELET COUNT 245 X10'3 (140-440); RED BLOOD COUNT 4.12 X10'6 (4.20-5.60); RED CELL DISTRIBUTION WIDTH 15.2 % (11.5-14.5); WHITE BLOOD COUNT 12.8 X10'3 (4.5-11.0)
[2021-02-12 06:37] LABS: ALANINE AMINOTRANSFERASE 26 U/L (12-78); ALBUMIN 2.6 G/DL (3.4-5.0); ALBUMIN/GLOBULIN RATIO 0.8 (1.1-1.5); ALKALINE PHOSPHATASE 47 IU/L (46-116); ANION GAP 7 (8-16); ASPARTATE AMINO TRANSFERASE 20 U/L (10-37); BILIRUBIN,TOTAL 0.2 MG/DL (0.1-1.0); BLOOD UREA NITROGEN 16 MG/DL (7-18); BUN/CREATININE RATIO 17.6 (6.6-38.0); CALCIUM 8.4 MG/DL (8.5-10.1); CHLORIDE 107 MMOL/L (99-107); CREATININE 0.91 MG/DL (0.40-0.90); GLUCOSE 172 MG/DL (70-104); POTASSIUM 3.9 MMOL/L (3.5-5.1); SODIUM 139 MMOL/L (135-145); TOTAL CARBON DIOXIDE 24.6 MMOL/L (24-32); eGFR 60 ML/MIN
--- NOTE | 2021-02-12 06:37 | NUR ---
Patient in room [facility] 358. I have received report from Sandra DIAZ and had the opportunity to ask questions and assume patient care.
[2021-02-12] MEDS: dextrose 5%-1/2 normal saline 1,000 ML IV SCH ×2 (07:29→16:05)
[2021-02-12] MEDS: heparin, porcine 5000 units/ml vial SQ SCH ×2 (07:30)
[2021-02-12 08:20] VITALS: BP 135/68
--- NOTE | 2021-02-12 08:23 | NUR ---
Paged Dr. Presley PAGER ID: [phone] MESSAGE: Philip DIAZ ext [phone]. RE: Yumiok Haddad. Lukas has (+) UTI on her UA. She received Rocephin IV yesterday x 1 dose only. Can we resume Rocephin IV?
[2021-02-12] MEDS: morphine 2 MG/ML inj. syringe IV PRN (09:14)
[2021-02-12] MEDS: MESSAGE TO NURSING PO SCH (10:00)
[2021-02-12] MEDS ORDERED: FLU VACC QS2021-22(6MOS UP)/PF 60 MCG/0.5 ML SYRINGE IM ONE (10:00)
[2021-02-12 11:00] VITALS: BP 116/77
[2021-02-12] MEDS ORDERED: glucagon, human recombinant 1mg kit SUBCUT PRN (11:00)
[2021-02-12] MEDS ORDERED: MESSAGE TO PHARMACY PO ONE (11:00)
[2021-02-12] MEDS ORDERED: insulin Lispro (HumaLOG) vial - multi-dose SQ SCH (11:00)
[2021-02-12] MEDS ORDERED: dextrose ORAL solution 15 GM/59 ML bottle PO PRN ×2 (11:00)
[2021-02-12] MEDS ORDERED: dextrose 50%-water 50ml dispensing syringe IV PRN ×2 (11:00)
[2021-02-12 11:31] LABS: C DIFF SPECIMEN=DIARRHEA? ACCEPTABLE; C DIFFICILE TOXINS A&B NEGATIVE (Neg)
--- NOTE | 2021-02-12 12:26 | NUR ---
DM/malnutrition consults: Pt with A1c 6.1%, down from 7.7% in November of this year per EMR, DM education not warranted at this time. Pt reports 2-13 lb wt loss with decreased appetite per malnutrition risk screen with RN. Noted pt with c/o diarrhea and emesis the day of admit per H&P. Current documented wt is stable with documented weight at previous admit, though neither weights are scaled. Pt currently NPO though noted required mechanical soft chopped food at previous admit. Pt with no documented significant decrease in muscle strength or edema and appears well developed well nourished per ED report. Pt currently lacks a minimum of two criteria for malnutrition. Will continue to follow and monitor qualifying criteria. Recommendations: 1) Advance to regular diet as medically indicated; monitor need for mechanical soft chopped food as per request at past admit in November 2) Monitor need for ONS with PO diet advancement 3) Bowel care per rx 4) Scaled weight this admit; weekly scaled weights thereafter Addendum: 02/12/21 at [address] Amended: Links added.
[2021-02-12] MEDS ORDERED: ASPI-611 PO (12:41)
[2021-02-12] MEDS ORDERED: APIX2.5T PO (12:41)
--- NOTE | 2021-02-12 13:00 | NUR ---
Paged Dr. Presley PAGER ID: [phone] MESSAGE: Surgical Philip DIAZ ext [phone]. RE: Yumiko Haddad. Are we keeping patient NPO?
[2021-02-12] MEDS: metroNIDAZOLE-Flagyl 500mg/NS 100 ML IV SCH (13:11)
--- NOTE | 2021-02-12 13:36 | NUR ---
Patient agreed not to take flu shot today due to high wbc today. She is requesting it for another day or when the doctor permitted her to have it
[2021-02-12] MEDS: ciprofloxacin lact 400MG/200ML 200 ML IV SCH (13:57)
--- NOTE | 2021-02-12 15:53 | NUR ---
Paged Dr. Presley PAGER ID: [phone] MESSAGE: Surgical Philip DIAZ ext [phone]. RE: Yumiko Haddad. Can she have a diet order? Still NPO at this time
--- NOTE | 2021-02-12 18:27 | NUR ---
Problems reprioritized. Patient report given, questions answered & plan of care reviewed with Radha DIAZ.
[2021-02-12] MEDS: HYDROcodone/acetaminophen 10/325mg tab PO PRN (19:30)
[2021-02-12] MEDS: apixaban 5mg tablet PO SCH (19:42)
[2021-02-12 19:52] VITALS: BP 120/64
[2021-02-12] MEDS: insulin glargine (Lantus) pen - multi-dose SQ SCH (21:00)
[2021-02-13] VITALS: BP_SYST 107; BP_SYST 136; BP_DIAS 53; BP_DIAS 74
[2021-02-13] MEDS: metroNIDAZOLE-Flagyl 500mg/NS 100 ML IV SCH ×3 (00:46→16:45)
[2021-02-13] MEDS: dextrose 5%-1/2 normal saline 1,000 ML IV SCH ×3 (02:05→22:05)
--- NOTE | 2021-02-13 06:28 | NUR ---
Report given , questions answered and plan of care reviewed with Cassandra DIAZ .
[2021-02-13 07:11] LABS: BASOPHILS % (AUTO) 0.3 % (0-1); EOSINOPHILS # (AUTO) 0.1 X10'3 (0-0.9); EOSINOPHILS % (AUTO) 0.9 % (0-6); HEMATOCRIT 34.4 % (35.0-45.0); HEMOGLOBIN 11.3 g/dl (12.0-16.0); LYMPHOCYTES # (AUTO) 2.9 X10'3 (1.1-4.8); LYMPHOCYTES % (AUTO) 24.4 % (21-51); MEAN CORPUSCULAR HEMOGLOBIN 29.8 PG (27.0-31.0); MEAN CORPUSCULAR HGB CONC 32.8 g/dL (33.0-36.5); MEAN CORPUSCULAR VOLUME 90.9 FL (78-98); MEAN PLATELET VOLUME 8.9 FL (7.4-10.4); MONOCYTES # (AUTO) 0.8 X10'3 (0-0.9); MONOCYTES % (AUTO) 6.8 % (2-12); NEUTROPHILS # (AUTO) 7.9 X10'3 (1.8-7.7); NEUTROPHILS % (AUTO) 67.6 % (42-75); PLATELET COUNT 224 X10'3 (140-440); RED BLOOD COUNT 3.78 X10'6 (4.20-5.60); RED CELL DISTRIBUTION WIDTH 14.8 % (11.5-14.5); WHITE BLOOD COUNT 11.7 X10'3 (4.5-11.0)
[2021-02-13 07:45] LABS: ALANINE AMINOTRANSFERASE 18 U/L (12-78); ALBUMIN 2.4 G/DL (3.4-5.0); ALBUMIN/GLOBULIN RATIO 0.8 (1.1-1.5); ALKALINE PHOSPHATASE 48 IU/L (46-116); ANION GAP 9 (8-16); ASPARTATE AMINO TRANSFERASE 15 U/L (10-37); BILIRUBIN,TOTAL 0.2 MG/DL (0.1-1.0); BLOOD UREA NITROGEN 8 MG/DL (7-18); BUN/CREATININE RATIO 9.5 (6.6-38.0); CALCIUM 8.5 MG/DL (8.5-10.1); CHLORIDE 108 MMOL/L (99-107); CREATININE 0.84 MG/DL (0.40-0.90); GLUCOSE 146 MG/DL (70-104); POTASSIUM 3.8 MMOL/L (3.5-5.1); SODIUM 142 MMOL/L (135-145); TOTAL CARBON DIOXIDE 25.1 MMOL/L (24-32); TOTAL PROTEIN 5.5 G/DL (6.4-8.2); eGFR 66 ML/MIN
[2021-02-13 08:00] VITALS: BP 127/64
[2021-02-13] MEDS: ciprofloxacin lact 400MG/200ML 200 ML IV SCH ×2 (09:17→20:13)
[2021-02-13] MEDS: apixaban 5mg tablet PO SCH ×2 (09:17→20:03)
[2021-02-13] MEDS: lisinopril 10 MG tablet PO SCH (09:18)
[2021-02-13] MEDS: MESSAGE TO NURSING PO SCH (10:00)
[2021-02-13] MEDS: HYDROcodone/acetaminophen 10/325mg tab PO PRN ×2 (10:27→20:03)
[2021-02-13 11:00] VITALS: BP 120/60
[2021-02-13] MEDS: insulin glargine (Lantus) pen - multi-dose SQ SCH (21:00)
--- NOTE | 2021-02-13 21:12 | NUR ---
PT RICA JUST ATE FOOD. Addendum: 02/13/21 at 2112 by Roxana Valles RN Amended: Links added.
[2021-02-14] MEDS: metroNIDAZOLE-Flagyl 500mg/NS 100 ML IV SCH ×3 (00:41→16:44)
[2021-02-14 06:00] VITALS: BP 150/70
--- NOTE | 2021-02-14 06:21 | NUR ---
Report given , questions answeres and POC reviewed with Darryl DIAZ .
[2021-02-14 06:54] LABS: BASOPHILS % (AUTO) 0.5 % (0-1); EOSINOPHILS # (AUTO) 0.2 X10'3 (0-0.9); EOSINOPHILS % (AUTO) 2.2 % (0-6); HEMATOCRIT 34.3 % (35.0-45.0); HEMOGLOBIN 11.4 g/dl (12.0-16.0); LYMPHOCYTES # (AUTO) 2.7 X10'3 (1.1-4.8); MEAN CORPUSCULAR HEMOGLOBIN 29.9 PG (27.0-31.0); MEAN CORPUSCULAR HGB CONC 33.1 g/dL (33.0-36.5); MEAN CORPUSCULAR VOLUME 90.4 FL (78-98); MEAN PLATELET VOLUME 8.3 FL (7.4-10.4); MONOCYTES # (AUTO) 0.5 X10'3 (0-0.9); MONOCYTES % (AUTO) 6.9 % (2-12); NEUTROPHILS % (AUTO) 54.4 % (42-75); PLATELET COUNT 222 X10'3 (140-440); RED BLOOD COUNT 3.79 X10'6 (4.20-5.60); RED CELL DISTRIBUTION WIDTH 15.5 % (11.5-14.5); WHITE BLOOD COUNT 7.4 X10'3 (4.5-11.0)
[2021-02-14 07:47] LABS: ALANINE AMINOTRANSFERASE 19 U/L (12-78); ALBUMIN 2.3 G/DL (3.4-5.0); ALBUMIN/GLOBULIN RATIO 0.7 (1.1-1.5); ALKALINE PHOSPHATASE 44 IU/L (46-116); ANION GAP 9 (8-16); ASPARTATE AMINO TRANSFERASE 13 U/L (10-37); BILIRUBIN,TOTAL 0.2 MG/DL (0.1-1.0); BLOOD UREA NITROGEN 7 MG/DL (7-18); BUN/CREATININE RATIO 8.6 (6.6-38.0); CALCIUM 8.4 MG/DL (8.5-10.1); CHLORIDE 109 MMOL/L (99-107); CREATININE 0.81 MG/DL (0.40-0.90); GLUCOSE 134 MG/DL (70-104); POTASSIUM 3.5 MMOL/L (3.5-5.1); SODIUM 141 MMOL/L (135-145); TOTAL CARBON DIOXIDE 22.8 MMOL/L (24-32); TOTAL PROTEIN 5.5 G/DL (6.4-8.2); eGFR 69 ML/MIN
[2021-02-14] MEDS: apixaban 5mg tablet PO SCH ×2 (09:05→20:13)
[2021-02-14] MEDS: HYDROcodone/acetaminophen 5mg/325mg tablet PO PRN ×2 (09:05→16:45)
[2021-02-14] MEDS: lisinopril 10 MG tablet PO SCH (09:06)
[2021-02-14] MEDS ORDERED: FLU VACC QS2021-22(6MOS UP)/PF 60 MCG/0.5 ML SYRINGE IM ONE (10:00)
[2021-02-14 11:00] VITALS: BP 136/67
[2021-02-14] MEDS: ciprofloxacin lact 400MG/200ML 200 ML IV SCH ×2 (11:21→20:14)
[2021-02-14] MEDS: dextrose 5%-1/2 normal saline 1,000 ML IV SCH ×2 (16:44→18:05)
[2021-02-14 20:00] VITALS: BP 144/81
[2021-02-14] MEDS: lactobacillus rhamnosus 10,000 MMU CELLS/CAPSULE PO SCH (20:13)
[2021-02-14] MEDS: insulin glargine (Lantus) pen - multi-dose SQ SCH (21:00)
[2021-02-14] MEDS: HYDROcodone/acetaminophen 10/325mg tab PO PRN (23:05)
[2021-02-15] VITALS: BP 148/76
[2021-02-15] MEDS: HYDROcodone/acetaminophen 10/325mg tab PO PRN ×2 (03:36→16:02)
[2021-02-15] MEDS: metroNIDAZOLE-Flagyl 500mg/NS 100 ML IV SCH ×2 (03:38→07:58)
[2021-02-15] MEDS: dextrose 5%-1/2 normal saline 1,000 ML IV SCH ×2 (04:05→14:05)
--- NOTE | 2021-02-15 06:36 | NUR ---
Patient report given , questions answered and plan of care reviewed with Cassandra DIAZ .
[2021-02-15 06:37] LABS: BASOPHILS % (AUTO) 0.5 % (0-1); EOSINOPHILS # (AUTO) 0.1 X10'3 (0-0.9); EOSINOPHILS % (AUTO) 2.2 % (0-6); HEMATOCRIT 33.7 % (35.0-45.0); HEMOGLOBIN 11.4 g/dl (12.0-16.0); LYMPHOCYTES # (AUTO) 2.3 X10'3 (1.1-4.8); MEAN CORPUSCULAR HEMOGLOBIN 30.2 PG (27.0-31.0); MEAN CORPUSCULAR HGB CONC 33.7 g/dL (33.0-36.5); MEAN CORPUSCULAR VOLUME 89.4 FL (78-98); MEAN PLATELET VOLUME 8.5 FL (7.4-10.4); MONOCYTES # (AUTO) 0.5 X10'3 (0-0.9); MONOCYTES % (AUTO) 7.4 % (2-12); NEUTROPHILS # (AUTO) 3.6 X10'3 (1.8-7.7); NEUTROPHILS % (AUTO) 54.9 % (42-75); PLATELET COUNT 249 X10'3 (140-440); RED BLOOD COUNT 3.77 X10'6 (4.20-5.60); RED CELL DISTRIBUTION WIDTH 15.1 % (11.5-14.5); WHITE BLOOD COUNT 6.6 X10'3 (4.5-11.0)
[2021-02-15 06:45] LABS: ALANINE AMINOTRANSFERASE 25 U/L (12-78); ALBUMIN 2.3 G/DL (3.4-5.0); ALBUMIN/GLOBULIN RATIO 0.7 (1.1-1.5); ALKALINE PHOSPHATASE 57 IU/L (46-116); ANION GAP 7 (8-16); ASPARTATE AMINO TRANSFERASE 25 U/L (10-37); BILIRUBIN,TOTAL 0.2 MG/DL (0.1-1.0); BLOOD UREA NITROGEN 5 MG/DL (7-18); BUN/CREATININE RATIO 6.7 (6.6-38.0); CALCIUM 8.3 MG/DL (8.5-10.1); CHLORIDE 110 MMOL/L (99-107); CREATININE 0.75 MG/DL (0.40-0.90); GLUCOSE 126 MG/DL (70-104); POTASSIUM 3.7 MMOL/L (3.5-5.1); SODIUM 141 MMOL/L (135-145); TOTAL CARBON DIOXIDE 23.6 MMOL/L (24-32); TOTAL PROTEIN 5.4 G/DL (6.4-8.2); eGFR 75 ML/MIN
[2021-02-15] MEDS: lisinopril 10 MG tablet PO SCH (07:57)
[2021-02-15] MEDS: lactobacillus rhamnosus 10,000 MMU CELLS/CAPSULE PO SCH (07:57)
[2021-02-15] MEDS: apixaban 5mg tablet PO SCH (07:57)
[2021-02-15] MEDS: ciprofloxacin lact 400MG/200ML 200 ML IV SCH (07:58)
[2021-02-15 08:00] VITALS: BP 155/80
[2021-02-15] MEDS ORDERED: CIPR-447 PO (10:25)
[2021-02-15] MEDS ORDERED: METR-159 PO (10:25)
[2021-02-15 12:00] VITALS: BP 161/87
[2021-02-15] MEDS ORDERED: metroNIDAZOLE 500mg tablet PO SCH (17:30)
[2021-02-15] MEDS ORDERED: ciprofloxacin 250mg tablet PO SCH (21:00)
== END 2021-02-15 16:53 | disposition home or self-care (01) | DRG 391 ==
LOC: ER 13:39 → ED HOLD 20:07 → SUR 3N 21:55
PROVIDERS: ADMIT Internal Medicine; ATTEND Family Medicine
PROC: BW211ZZ Computerized Tomography (CT Scan) of Abdomen and Pelvis using Low Osmolar Contrast (ICD-10-PCS; principal; 2021-02-11)
DX: A09 Infectious gastroenteritis and colitis, unspecified (principal); N17.0 Acute kidney failure with tubular necrosis; I50.32 Chronic diastolic (congestive) heart failure; I27.20 Pulmonary hypertension, unspecified; R82.81 Pyuria; Z66 Do not resuscitate; K57.90 Diverticulosis of intestine, part unspecified, without perforation or abscess without bleeding; R41.3 Other amnesia; N18.30 Chronic kidney disease, stage 3 unspecified; E11.22 Type 2 diabetes mellitus with diabetic chronic kidney disease; Z79.01 Long term (current) use of anticoagulants; Z86.711 Personal history of pulmonary embolism; Z86.16 Personal history of COVID-19; Z79.82 Long term (current) use of aspirin; Z79.899 Other long term (current) drug therapy; Z87.440 Personal history of urinary (tract) infections
CPT/HCPCS: 36415; 71045; 74177; 80053; 81001; 82948; 83036; 83605; 83690; 83735; 85025; 85610; 85730; 87040; 87045; 87046; 87081; 87088; 87324; 87449; 97116; 97161; 97530; 99285; G0378; J0696; J0744; J1644; J1815; J2270; J2405; J3490; J7042; Q9967

== ENCOUNTER 2021-05-09 11:58 | Emergency (ER) | payer MEDICARE ==
[~2021-05-09] VITALS: Ht 167.6 cm; Wt 65.9 kg
[~2021-05-09 11:58] MED LIST changes: +APIX2.5T PO; +ASPI-611 PO; +FAMO20TA8 PO; +FURO40TA4 PO; -NITR100C11 PO
[2021-05-09] MEDS ORDERED: TETanus/Pertussis (Acell)/Diphther VAC/PF (Tdap-Adult) 0.5ml syringe IMVAC ONE (12:20)
[2021-05-09] MEDS ORDERED: LIDOcaine 1% 30ml preserv. free vial IJ ONE (12:20)
[2021-05-09] MEDS ORDERED: HYDROcodone/acetaminophen 5mg/325mg tablet PO ONE (12:55)
--- NOTE | 2021-05-09 13:22 | NUR ---
PA at bedside to suture
[2021-05-09 14:14] VITALS: BP 162/93
== END 2021-05-09 14:15 | disposition home or self-care (01) ==
LOC: ER 11:58
DX: S61.411A Laceration without foreign body of right hand, initial encounter (principal); E11.9 Type 2 diabetes mellitus without complications; Z86.711 Personal history of pulmonary embolism; Z79.82 Long term (current) use of aspirin; Z20.3 Contact with and (suspected) exposure to rabies; Z79.899 Other long term (current) drug therapy; W45.8XXA Other foreign body or object entering through skin, initial encounter; Y93.89 Activity, other specified; Y92.89 Other specified places as the place of occurrence of the external cause; Y99.8 Other external cause status
CPT/HCPCS: 12001; 90471; 90715; 99283; J3490

== ENCOUNTER 2021-09-07 20:06 | Inpatient (IN) | payer MEDICARE ==
[~2021-09-07] VITALS: Ht 167.6 cm; Wt 84.1 kg
[2021-09-07 20:43] LABS: BASOPHILS # (AUTO) 0.1 X10'3 (0-0.2); BASOPHILS % (AUTO) 0.6 % (0-1); EOSINOPHILS # (AUTO) 0.2 X10'3 (0-0.9); EOSINOPHILS % (AUTO) 1.2 % (0-6); HEMATOCRIT 44.9 % (35.0-45.0); HEMOGLOBIN 14.9 g/dl (12.0-16.0); LYMPHOCYTES # (AUTO) 3.1 X10'3 (1.1-4.8); LYMPHOCYTES % (AUTO) 22.2 % (21-51); MEAN CORPUSCULAR HGB CONC 33.2 g/dL (33.0-36.5); MEAN CORPUSCULAR VOLUME 87.4 FL (78-98); MEAN PLATELET VOLUME 8.4 FL (7.4-10.4); MONOCYTES # (AUTO) 0.6 X10'3 (0-0.9); MONOCYTES % (AUTO) 4.6 % (2-12); NEUTROPHILS % (AUTO) 71.4 % (42-75); PLATELET COUNT 293 X10'3 (140-440); RED BLOOD COUNT 5.13 X10'6 (4.20-5.60)
[2021-09-07 20:51] LABS: ALANINE AMINOTRANSFERASE 45 U/L (12-78); ALBUMIN 3.7 G/DL (3.4-5.0); ALBUMIN/GLOBULIN RATIO 0.8 (1.1-1.5); ALKALINE PHOSPHATASE 83 IU/L (46-116); ANION GAP 11 (8-16); ASPARTATE AMINO TRANSFERASE 34 U/L (10-37); BILIRUBIN,TOTAL 0.6 MG/DL (0.1-1.0); BLOOD UREA NITROGEN 13 MG/DL (7-18); CALCIUM 9.1 MG/DL (8.5-10.1); CHLORIDE 103 MMOL/L (99-107); GLUCOSE 173 MG/DL (70-104); LIPASE 85 U/L (73-393); POTASSIUM 4.1 MMOL/L (3.5-5.1); SODIUM 137 MMOL/L (135-145); TOTAL CARBON DIOXIDE 23.2 MMOL/L (24-32); TOTAL PROTEIN 8.6 G/DL (6.4-8.2); eGFR 54 ML/MIN
[2021-09-07 20:51] LABS: CLARITY,URINE SLIGHTLY CLOUDY (Clear); COLOR,URINE YELLOW (Yellow); GLUCOSE, URINE NEGATIVE (Neg); KETONES,URINE TRACE mg/dl (Neg); LEUKOCYTE ESTERASE ,URINE MODERATE (Neg); NITRITES, URINE NEGATIVE (Neg); OCCULT BLOOD,URINE TRACE-INTACT (Neg); PROTEIN,URINE 30 mg/dl (Neg); UROBILINOGEN,URINE 0.2 E.U/dL (0.2-1.0)
[2021-09-07 20:53] LABS: UA COLLECTION TYPE CLN CATCH MIDSTREAM
[2021-09-07] MEDS ORDERED: morphine 2 MG/ML inj. syringe IV ONE (20:55)
[2021-09-07] MEDS ORDERED: normal saline 1000ML IV soln IVB ONE (20:55)
[2021-09-07] MEDS ORDERED: ondansetron/PF 4mg/2ml inj IV ONE (20:55)
[2021-09-07 21:05] LABS: BACTERIA,URINE FEW /HPF (Neg); MUCUS STRANDS FEW /LPF (Neg); RBC,URINE 0-2 /HPF (0-2); SQUAMOUS EPITHELIAL CELL,UR FEW /LPF (FEW); WBC,URINE 30-50 /HPF (0-4)
[2021-09-07] MEDS ORDERED: piperacillin/tazo 3.375gm/50ml 50 ML IV ONE (21:20)
[2021-09-07] MEDS ORDERED: diphenhydrAMINE 50 mg/ml inj IV ONE (22:30)
[2021-09-07] MEDS ORDERED: metoclopramide 5 mg/ml inj IV ONE (22:30)
[2021-09-08] MEDS ORDERED: morphine 2 MG/ML inj. syringe IV PRN ×2 (00:35)
[2021-09-08] MEDS ORDERED: HYDROcodone/acetaminophen 5mg/325mg tablet PO PRN (00:35)
[2021-09-08] MEDS ORDERED: ondansetron/PF 4mg/2ml inj IV PRN (00:35)
[2021-09-08] MEDS ORDERED: magnesium hydroxide 30ml (MOM) UD suspension PO PRN (00:35)
[2021-09-08] MEDS ORDERED: bisacodyl 10mg suppository rectal RC PRN (00:35)
[2021-09-08] MEDS ORDERED: diphenhydrAMINE 25mg capsule PO PRN (00:35)
[2021-09-08] MEDS: normal saline 1000ml 1,000 ML IV SCH ×2 (00:35→10:32)
[2021-09-08] MEDS ORDERED: diphenhydrAMINE 50 mg/ml inj IV PRN (00:35)
[2021-09-08] MEDS ORDERED: HYDROcodone/acetaminophen 10/325mg tab PO PRN (00:35)
[2021-09-08] MEDS ORDERED: ondansetron 4mg rapidly disintigrating tab PO PRN (00:35)
[2021-09-08] MEDS ORDERED: mag hydrox/Alum hydrox/simeth 30ml oral suspension PO PRN (00:35)
[2021-09-08] MEDS ORDERED: acetaminophen 325mg tablet PO PRN ×2 (00:35)
[2021-09-08] MEDS ORDERED: acetaminophen 650mg rectal suppository RC PRN (00:35)
[2021-09-08] MEDS ORDERED: glucagon, human recombinant 1mg kit SUBCUT PRN (00:45)
[2021-09-08] MEDS ORDERED: MESSAGE TO PHARMACY PO ONE (00:45)
[2021-09-08] MEDS ORDERED: dextrose 50%-water 50ml dispensing syringe IV PRN ×2 (00:45)
[2021-09-08] MEDS ORDERED: DEXTROSE 15 GM of carb/4 tabs (each vial/BOTTLE has 4 tablets) PO PRN ×2 (00:45)
[2021-09-08] MEDS ORDERED: insulin Lispro (HumaLOG) vial - multi-dose SQ SCH (00:45)
[2021-09-08 05:20] LABS: HEMOGLOBIN A1C 7.6 % (4.5-6.2)
[2021-09-08 05:25] LABS: CREATINE KINASE 150 U/L (26-192); MAGNESIUM 2.1 MG/DL (1.5-2.4); PHOSPHORUS 3.6 MG/DL (2.3-4.5)
[2021-09-08 07:15] LABS: APTT 28 SECONDS (22-32); D-DIMER 1.26 MG/L FEU (0-0.50)
[2021-09-08] MEDS ORDERED: docusate sod 100mg capsule PO SCH (08:00)
[2021-09-08] MEDS ORDERED: cefTRIAXone 1g/NS 100ml IVPB 100 ML IV SCH (08:00)
[2021-09-08] MEDS ORDERED: heparin, porcine 5000 units/ml vial SQ SCH (08:00)
[2021-09-08 12:25] VITALS: BP 163/89
[2021-09-08 13:03] LABS: ALANINE AMINOTRANSFERASE 40 U/L (12-78); ALBUMIN 3.2 G/DL (3.4-5.0); ALBUMIN/GLOBULIN RATIO 0.8 (1.1-1.5); ANION GAP 7 (8-16); ASPARTATE AMINO TRANSFERASE 33 U/L (10-37); BASOPHILS # (AUTO) 0.1 X10'3 (0-0.2); BASOPHILS % (AUTO) 0.6 % (0-1); BILIRUBIN,TOTAL 0.4 MG/DL (0.1-1.0); BLOOD UREA NITROGEN 14 MG/DL (7-18); CALCIUM 8.7 MG/DL (8.5-10.1); CHLORIDE 108 MMOL/L (99-107); EOSINOPHILS # (AUTO) 0.2 X10'3 (0-0.9); EOSINOPHILS % (AUTO) 2.2 % (0-6); GLUCOSE 117 MG/DL (70-104); HEMATOCRIT 42.1 % (35.0-45.0); LYMPHOCYTES # (AUTO) 2.9 X10'3 (1.1-4.8); LYMPHOCYTES % (AUTO) 32.9 % (21-51); MEAN CORPUSCULAR HEMOGLOBIN 28.8 PG (27.0-31.0); MEAN CORPUSCULAR HGB CONC 33.2 g/dL (33.0-36.5); MEAN CORPUSCULAR VOLUME 86.7 FL (78-98); MEAN PLATELET VOLUME 8.4 FL (7.4-10.4); MONOCYTES # (AUTO) 0.6 X10'3 (0-0.9); MONOCYTES % (AUTO) 6.4 % (2-12); NEUTROPHILS # (AUTO) 5.2 X10'3 (1.8-7.7); NEUTROPHILS % (AUTO) 57.9 % (42-75); PLATELET COUNT 273 X10'3 (140-440); POTASSIUM 3.9 MMOL/L (3.5-5.1); RED BLOOD COUNT 4.85 X10'6 (4.20-5.60); RED CELL DISTRIBUTION WIDTH 13.8 % (11.5-14.5); SODIUM 141 MMOL/L (135-145); TOTAL CARBON DIOXIDE 26.4 MMOL/L (24-32); TOTAL PROTEIN 7.1 G/DL (6.4-8.2); WHITE BLOOD COUNT 8.9 X10'3 (4.5-11.0); eGFR 54 ML/MIN
[2021-09-08 13:20] LABS: ALKALINE PHOSPHATASE 75 IU/L (46-116)
[2021-09-08] MEDS ORDERED: ONDA4TAB12 PO (13:32)
[2021-09-08] MEDS ORDERED: LEVO750T46 PO (13:32)
[2021-09-08] MEDS ORDERED: temazepam 15mg capsule PO PRN (21:00)
== END 2021-09-08 17:02 | disposition home or self-care (01) | DRG 683 ==
LOC: ER 20:07 → ED HOLD 09-08 00:41 → EDBEDREQ 09-08 04:20 → CANBEDREQ 09-08 07:52
PROVIDERS: ADMIT Family Medicine; ATTEND Family Medicine
DX: N17.9 Acute kidney failure, unspecified (principal); I50.32 Chronic diastolic (congestive) heart failure; N39.0 Urinary tract infection, site not specified; E86.0 Dehydration; K42.9 Umbilical hernia without obstruction or gangrene; K57.90 Diverticulosis of intestine, part unspecified, without perforation or abscess without bleeding; R82.4 Acetonuria; I27.20 Pulmonary hypertension, unspecified; I11.0 Hypertensive heart disease with heart failure; E11.65 Type 2 diabetes mellitus with hyperglycemia; Z86.711 Personal history of pulmonary embolism; Z87.440 Personal history of urinary (tract) infections; Z79.899 Other long term (current) drug therapy; Z79.82 Long term (current) use of aspirin
CPT/HCPCS: 36415; 71045; 74176; 80053; 81001; 82550; 82948; 83036; 83605; 83690; 83735; 83880; 84100; 84145; 85025; 85379; 85610; 85730; 87040; 87088; 99285; G0378; J0696; J1815; J2270; J2405; J2543; J7030